=== PATIENT | female | born 1965 | race Caucasian/White ===

== ENCOUNTER 2025-06-10 12:06 | Emergency (ER) | payer OTHER, SELFPAY ==
[2025-06-10 12:07] VITALS: BP 139/78; PULSE 71; RESP 18; TEMP 37; O2SAT 100; BMI 35.4
[2025-06-10 12:36] LABS: Hematocrit 32.6 % (37-47); Hemoglobin 10.2 g/dL (12.0-15.0); Immature Granulocytes Count 0.000 X10^3/uL (0.0-0.0); Mean Corp Hgb Conc 31.3 g/dL (32-36); Mean Corpuscular Volume 92.6 fL (81-99); Mean Platelet Vol. 9.9 fl (6.2-12.0); NRBC Flagged by Analyzer 0 % (0-5); Platelet Count 226 K/mm3 (150-450); RBC Distribution Width CV 16.0 % (11.6-14.6); RBC Distribution Width SD 54.4 fl (35.1-43.9); Red Blood Count 3.52 M/mm3 (4.2-5.4); White Blood Count 4.4 K/mm3 (4.4-11.0)
[2025-06-10 12:48] LABS: Mucous, Urine 0 SEEN /hpf (<or=2+); Red Blood Cells-Urine 0 SEEN /hpf (0-5)
[2025-06-10 12:49] LABS: Color, Urine Yellow (Yellow); Glucose, Dipstick Normal (Normal); Ketone-Dipstick Negative (Negative); Leukocyte Esterase-Dipstick Negative /ul (Negative); Nitrite-Dipstick Negative (Negative); Occult Blood-Urine 10 /ul (Negative); Protein-Dipstick 15 mg/dl (Negative); Specific Gravity, Urine 1.015 (1.002-1.030); Urine Bilirubin Dipstick Negative (Negative)
[2025-06-10 13:00] LABS: AST(SGOT) 20 U/L (<=31); Alanine Aminotransfer ALT/SGPT 15 U/L (<=34); Albumin, Serum 4.1 g/dL (3.4-4.8); Alkaline Phosphatase 94 U/L (35-104); Anion Gap 8 (5-15); BUN 13 mg/dL (4-19); BUN/Creat Ratio 15.8 RATIO (10-20); Calcium,Total 9.0 mg/dL (7.6-11.0); Carbon Dioxide 24.9 mmol/L (21.0-32.0); Chloride 107 mmol/L (98-108); Estimated Creatinine Clearance 76.10 ml/min (50-250); Globulin 2.6 g/dL (2.2-4.2); Glucose 100 mg/dL (70-99); Lipase 20 U/L (13-75); Potassium 4.1 mmol/L (3.3-5.1)
[2025-06-10 13:06] LABS: Squamous Epithelial Cells - UA 0-5 SEEN /hpf (5-10)
--- NOTE | 2025-06-10 14:28 | EDS_ITS ---
HPI HPI - GI History of Present Illness Chief Complaint: GI Bleed Informant: patient Narrative Narrative: Patient presents with 4 days of runny black stool. No blood. No abdominal pain, no nausea, vomiting, lightheadedness, orthostatic symptoms, syncope or near syncope. She states she was concerned because a little over 1 month ago, she was on her way back here from [place] and had to stop in [place] because she was vomiting blood and having melanotic stools. She was admitted to the hospital had endoscopy showing a bleeding ulcer that was cauterized, she discontinued her aspirin for period of time but she has been taking it again for the last several weeks, as she had an ID in the past and has been treated medically, and is on pantoprazole. No other new medications Other than iron supplementation which she started 1 week ago. She denies any bright red blood per rectum. 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 Social History Smoking Status: Never smoker ROS ROS ED Constitutional Constitutional ED: Denies chills or fever(s) Eyes Eyes: Denies change in vision or diplopia ENT ENT ED: Denies rhinorrhea or sore throat Cardiovascular Cardiovascular: Denies chest pain, lightheadedness, palpitations or syncope Respiratory/Chest Respiratory/Chest: Denies cough or dyspnea Gastrointestinal Gastrointestinal: Reports diarrhea and melena; Denies abdominal pain, nausea or vomiting Genitourinary Genitourinary ED: Denies dysuria or hematuria Musculoskeletal Musculoskeletal: Denies back pain or neck pain Integumentary Denies abscess or rash Neurologic Neurologic: Denies headache(s), paresthesias or weakness Psychiatric Psychiatric: Denies anxiety or suicidal thoughts EXAM Physical Exam Const Vital Signs: 06/10/25 12:07 Temperature 98.6 F Temperature Source Oral Pulse Rate 71 Respiratory Rate 18 Blood Pressure 139/78 H Blood Pressure Mean 98 Pulse Ox 100 Oxygen Delivery Method Room Air Positive well nourished and well developed Constitutional Narrative: Well-appearing pleasant no acute distress General Appearance ED: well developed and NAD HEENT Reports moist mucous membranes normocephalic and atraumatic Eyes PERRL and EOMs intact bilaterally Neck full ROM and supple Resp normal respiratory effort and clear to auscultation bilaterally Cardio regular rate, regular rhythm and no murmurs GI non-tender and non-distended GI Narrative: Benign exam. On rectal no tenderness. Very little specimen which is not melanotic or red/bloody. Auscultation: normoactive bowel sounds Palpation: soft Back/Spine no CVA tenderness General Back: other FROM Extremity normal to inspection General Extremety ED: Negative for edema, pulses abnormal or tenderness General Extremity: Negative for edema or pulses abnormal Neuro oriented x3, CN's II-XII intact bilaterally and no sensory deficits noted Sensorium / Orientation: awake and alert Motor Exam: strength 5/5 throughout Skin no rashes or lesions noted and no wounds MDM MDM MDM Narrative Medical decision making narrative: Labs show the patient's hemoglobin is 10.2, I have no old measurements available but she states that when she was admitted to the hospital she was in the 5 range, and as an outpatient within the last couple weeks she was about 8.5. This is reassuring to her. Furthermore her BUN is not significantly elevated to suggest an active acute upper GI bleed. This may be the iron supplementation that is causing the stool discoloration. I checked a Hemoccult; exam is benign and the Hemoccult on the trach specimen available is negative. At this time I think we have enough to discharge the patient safely and follow-up with her doctor. Her discolored stools are more likely related to her new iron supplementation, and she can follow-up with her primary care doctor. History & Record Review Additional record(s) reviewed:: No prior records Lab Data Attestation: I reviewed the patient's lab results. Labs: Laboratory Results - last 24 hr 06/10/25 06/10/25 12:26 12:43 WBC 4.4 RBC 3.52 L Hgb 10.2 L Hct 32.6 L MCV 92.6 MCH 29.0 MCHC 31.3 L RDW Std Deviation 54.4 H RDW Coeff of Kimberly 16.0 H Plt Count 226 MPV 9.9 Immature Gran % (Auto) 0.000 Neut % (Auto) 50.6 Lymph % (Auto) 32.0 [place] % (Auto) 7.6 Eos % (Auto) 8.7 H Baso % (Auto) 1.1 H Absolute Neuts (auto) 2.2 Absolute Lymphs (auto) 1.40 Nucleated RBC % 0 Sodium 141 Potassium 4.1 Chloride 107 Carbon Dioxide 24.9 Anion Gap 8 BUN 13 Creatinine 0.83 Estim Creat Clear Calc 76.10 Est GFR (MDRD) Non-Af 80 BUN/Creatinine Ratio 15.8 Glucose 100 H Calcium 9.0 Total Bilirubin 0.38 AST 20 ALT 15 Alkaline Phosphatase 94 Total Protein 6.7 Albumin 4.1 Globulin 2.6 Albumin/Globulin Ratio 1.6 Lipase 20 Urine Color Yellow Urine Clarity Clear Urine pH 6.0 Ur Specific [place] 1.015 Urine Protein 15 H Urine Glucose (UA) Normal Urine Ketones Negative Urine Occult Blood 10 H Urine Nitrite Negative Urine Bilirubin Negative Urine Urobilinogen Normal Ur Leukocyte Esterase Negative Urine RBC 0 SEEN Urine WBC 0 SEEN Ur Squamous Epith Cells 0-5 SEEN Urine Bacteria 0 SEEN Urine Mucus 0 SEEN Discharge Plan Triage Chief Complaint: GI Bleed ED Provider: Arsenio Hicks Dx/Rx/DC Orders Clinical Impression: Black stools, Anemia, Personal history of peptic ulcer disease Instructions: Iron Supplements Primary Care Provider: Tara Hernandez NP Referrals: Tara Hernandez NP, PHYSICAL THERAPY DIRECTOR-C [Primary Care Provider] - (as previously directed, or sooner if other new issues) Print Language: Turkmen Disposition Disposition: Home, Self Care
[2025-06-10 15:23] VITALS: BP 178/100; PULSE 69; RESP 16; TEMP 36.4; O2SAT 100
== END 2025-06-10 15:23 | disposition home or self-care (01) ==
PROVIDERS: Emergency Provider Emergency Medicine; PCP Nurse Practitioner Primary Care; Visit Provider Emergency Medicine
DX: R19.5 Other fecal abnormalities (principal); I25.2 Old myocardial infarction; D64.9 Anemia, unspecified; Z87.11 Personal history of peptic ulcer disease
CPT/HCPCS: 80053; 81001; 82274; 83690; 85025; 99282; A4216

== ENCOUNTER → 2025-08-14 | Outpatient (CLI) | payer OTHER, SELFPAY ==
[2025-08-14 16:49] LABS: Hematocrit 37.2 % (37-47); Hemoglobin 12.1 g/dL (12.0-15.0); Immature Granulocytes Count 0.010 X10^3/uL (0.0-0.0); Immature Reticulocyte Fraction 11.50 % (3.00-15.90); Mean Corp Hgb Conc 32.5 g/dL (32-36); Mean Corpuscular Volume 87.5 fL (81-99); Mean Platelet Vol. 9.9 fl (6.2-12.0); NRBC Flagged by Analyzer 0 % (0-5); Platelet Count 241 K/mm3 (150-450); RBC Distribution Width CV 15.7 % (11.6-14.6); RBC Distribution Width SD 49.6 fl (35.1-43.9); Red Blood Count 4.25 M/mm3 (4.2-5.4); Reticulocyte Count 0.86 % (0.5-1.5); White Blood Count 5.3 K/mm3 (4.4-11.0)
[2025-08-14 17:17] LABS: Ferritin 18 ng/mL (22-378); Iron Binding Capacity,Total 357 ug/dL (250-450)
[2025-08-14 17:21] LABS: Iron 25 ug/dL (50-170); Iron Binding Capacity,Unsat 332 ug/dL (228-428); LDH 360 U/L (84-246)
[2025-08-19 15:09] LABS: Albumin 3.5 g/dL (2.9-4.4); Gamma Globulin 0.7 g/dL (0.4-1.8); Immunoglobulin A 343 mg/dL (87-352); Immunoglobulin G 695 mg/dL (586-1602); Immunoglobulin M 119 mg/dL (26-217); PROEL- TOTAL PROTEIN 6.6 g/dL (6.0-8.5)
== END | disposition home or self-care (01) ==
LOC: LAB 16:22
PROVIDERS: PCP Nurse Practitioner Primary Care; Referring Provider Internal Medicine Gastroenterology; Visit Provider Internal Medicine Gastroenterology
DX: D64.9 Anemia, unspecified (principal)
CPT/HCPCS: 36415; 82728; 82784; 83010; 83516; 83540; 83550; 83615; 84165; 85025; 85045; 86255; 86334

== ENCOUNTER 2025-09-03 10:30 | Day surgery (SDC) | payer OTHER, SELFPAY ==
--- NOTE | 2025-09-02 14:59 | PAT.ANE_ITS ---
Pre-Assessment Diagnosis/Proposed Procedure Planned Operative Procedure(s): EGD Anesthesia History Anesthesia History - certified nutritionist: Anesthesia History - certified nutritionist Hx Hospitalization Yes: BLEEDING ULCER, BLOOD 09/02/25 11:58 TRANSFUSION 05/2025 Any Problems With Anesthesia No 09/02/25 11:58 Cholinesterase deficiency No 09/02/25 11:58 You/Your Family Experience No 09/02/25 11:58 fever (hyperthermia) with Relationship Recent Exposure to Contagious Disease Does patient have nerve No 09/02/25 11:58 stimulator Patient instructed to have device shut off --Does patient have Pacemaker or ICD? When Was Last Pacemaker Check QUESTION #4 FULL TEXT: You/Your Family Experience fever (hyperthermia) with Anesthesia Last Oral Intake Last Oral intake: Last Oral Intake NPO since Meds taken in AM with sips of water? Meds patient instructed to take am of surgery PONV PONV - certified nutritionist: PONV - certified nutritionist Female Yes 09/02/25 11:58 HX of Motion Sickness No 09/02/25 11:58 HX of N/V After Surgery No 09/02/25 11:58 Non-Smoker Yes 09/02/25 11:58 Duration of Surgery greater No 09/02/25 11:58 than 60 minutes Number of Risk Factors 2 09/02/25 11:58 PONV Score Moderate Risk 09/02/25 11:58 Height & Weight Height & Weight: Anesthesia: Height & Weight Height 5 ft 3 in 06/10/25 12:07 Respiratory Assessment Respiratory Assessment - certified nutritionist: Respiratory Tract Infection Hx - certified nutritionist Hx Respiratory Tract Infection No 09/02/25 11:58 STOP Sleep Apnea STOP Sleep Apnea - certified nutritionist: STOP Sleep Apnea - certified nutritionist Hx Hypertension Yes: CONTROLLED ON MED 09/02/25 11:58 Hx Sleep Apnea No 09/02/25 11:58 CPAP BIPAP Do you snore loudly (louder No 09/02/25 11:58 than talking or can be heard Do you often feel tired/ No 09/02/25 11:58 fatigued/ sleepy during daytime? Has anyone observed you stop No 09/02/25 11:58 breathing during sleep? STOP Results Negative 09/02/25 11:58 QUESTION #5 FULL TEXT : Do you snore loudly (louder than talking or can be heard through closed doors)? 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 Specify any problems Hx of Preganancy in last 3 No 09/02/25 11:58 Months Nurse Filling Out Transfusion VCHRISTIN 09/02/25 11:58 & Questions: Date: 09/02/25 09/02/25 11:58 Time: 11:59 09/02/25 11:58 Patient unable to answer at this time (ie. confused, unrespo /Reproduction History /Reproductive History - certified nutritionist: /Reproductive Hx- certified nutritionist Hx Now No 09/02/25 11:58 Gestational Age (in weeks): EDC: Hx Hx Para Hx Section SAB No 09/02/25 11:58 Does the father of the baby or his family experience fever w Father of the baby Malignant Hypertension history comment PFSH Medical History (Updated 09/02/25 @ 14:13 by Debbie Dykes) History of echocardiogram Wears glasses Post-menopausal Arthritis Kidney stones High cholesterol Amnesia, global, transient History of ulceration Gastric reflux Non-smoker Cardiology follow-up encounter Osteoarthritis of right knee Myocardial infarction HTN (hypertension) HLD (hyperlipidemia) Right hip pain Duodenal ulcer delivery delivered PUD (peptic ulcer disease) Home Medications ?Medication ?Instructions ?Recorded ?Last Taken ?Type acetaminophen 500 mg tablet 500 mg PO Q6H PRN pain Unknown History (Tylenol Extra Strength) aspirin 81 mg tablet 81 mg PO QDAY 06/23/25 Unkno wn History atorvastatin 40 mg tablet (Lipitor) 40 mg PO QDAY 06/09 03/02 Unknown History ezetimibe 10 mg tablet 10 mg PO QDAY 06/23/25 Unkno wn History metoprolol succinate 25 mg 25 mg PO QDAY 06/23/25 Unkn own History tablet,extended release 24 hr Allergy/AdvReac Type Severity Reaction Status Date / Time amoxicillin Allergy Vomiting Verified 09/02/25 11:47 clavulanic acid (From AdvReac Vomiting Verified 09/02/25 11:47 Augmentin) Family History (Updated 06/23/25 @ 15:58 by Jami Leiva) Father Cancer TIA (transient ischemic attack) Mother Heart disease Surgical History (Updated 09/02/25 @ 14:13 by Debbie Dykes) History of cardiac catheterization Previous section 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 Social History (Updated 08/14/25 @ 16:21 by Maribeth Wyatt) Smoking Status: Never smoker alcohol intake: never substance use type: does not use Audit: Pertinent Findings HISTORY of Pertinent Findings History of Pertinent Findings: Cleared by Cardiology Pertinent Findings EKG Perinent findings: 01/2024: NSR, slight inferior repolarization disturbance Echo (EF%) pertinent findings: 04/2022: EF 55-60%, mild aortic regurgitation, RVSP 17, otherwise normal study Heart catheterization pertinent findings: [facility] 04/2022: Normal study, no evidence of disease in vessels Recommendation Anesthesia Recommendation Anesthesia recommendation: OPTIMIZED for anesthesia
[2025-09-03] VITALS (9 sets, daily range): BP systolic 100–129; BP diastolic 60–85; PULSE 65–75; RESP 12–16; TEMP 36.1–36.2; O2SAT 94–100; BMI 35.1
[2025-09-03] MEDS: Lactated Ringers 1,000 ML 15 ML IV (10:49)
--- NOTE | 2025-09-03 10:54 | PRE.ANES_ITS ---
ASA Classification* ASA Classification ASA Classification: 2 (HTN, anemia) Assessment & Plan Anesthesia* Anesthesia Assessment Anesthesia Assessment: Discussed sedation and/or anesthesia options, risks, benefits, and alternatives with patient/parents/legal guardian/POA. Questions invited. The patient/parents/legal guardian/POA seems to understand and agrees to proceed with anesthesia plan. Reviewed the physical assessment, medical history, allergy history and patient home medications list prior to surgery/procedure/anesthetic and documented any changes. Performed airway and anesthesia risk assessments. Anesthesia Type Anesthesia Type: MAC History Source History Obtained from:: Patient and Chart Anesthesia Focused Assessment* Temperature: 97.2 F Pulse Rate: 70 Blood Pressure: 129/67 Respiratory Rate: 12 Pulse Ox: 98 Oxygen Delivery Method: Room Air Airway Assessment Mouth opens: >3 cm Mallampati Score: III Teeth Condition: Missing Neck Range of motion (ROM): Full ROM Labs Anesthesia Preop lab: CBC WBC, (4.4-11.0) 5.3 K/mm3 08/14/25, 16: RBC, (4.2-5.4) 4.25 M/mm3 08/14/25, 16: Hgb, (12.0-15.0) 12.1 g/dL 08/14/25, 16: Hct, (37-47) 37.2 % 08/14/25, 16: Plt Count, (150-450) 241 K/mm3 08/14/25, 16: CHEMISTRY Potassium, (3.3-5.1) 4.1 mmol/L 06/10/25, 12: Sodium, (133-145) 141 mmol/L 06/10/25, 12: BUN, (4-19) 13 mg/dL 06/10/25, 12: Creatinine, (0.70-1.20) 0.83 mg/dL 06/10/25, 12: Glucose, (70-99) 100 mg/dL H 06/10/25, 12: COAG Pre-Assessment Diagnosis/Proposed Procedure Planned Operative Procedure(s): EGD Anesthesia History Anesthesia History - foreign language interpreter: Anesthesia History - foreign language interpreter Hx Hospitalization Yes: BLEEDING ULCER, BLOOD 09/02/25 11:58 TRANSFUSION 05/2025 Any Problems With Anesthesia No 09/02/25 11:58 Cholinesterase deficiency No 09/02/25 11:58 You/Your Family Experience No 09/02/25 11:58 fever (hyperthermia) with Relationship Recent Exposure to Contagious No 09/03/25 10:45 Disease Does patient have nerve No 09/02/25 11:58 stimulator Patient instructed to have device shut off --Does patient have Pacemaker No 09/03/25 10:45 or ICD? When Was Last Pacemaker Check QUESTION #4 FULL TEXT: You/Your Family Experience fever (hyperthermia) with Anesthesia Last Oral Intake Last Oral intake: Last Oral Intake NPO since 20:00 09/03/25 10:45 Meds taken in AM with sips of Yes 09/03/25 10:45 water? Meds patient instructed to see med list 09/03/25 10:45 take am of surgery PONV PONV - foreign language interpreter: PONV - foreign language interpreter Female Yes 09/02/25 11:58 HX of Motion Sickness No 09/02/25 11:58 HX of N/V After Surgery No 09/02/25 11:58 Non-Smoker Yes 09/02/25 11:58 Duration of Surgery greater No 09/02/25 11:58 than 60 minutes Number of Risk Factors 2 09/02/25 11:58 PONV Score Moderate Risk 09/02/25 11:58 Height & Weight Height & Weight: Anesthesia: Height & Weight Height 5 ft 3 in 09/03/25 10:45 Weight: 90 kg 09/03/25 10:45 Body Mass Index (BMI) 35.1 09/03/25 10:45 Respiratory Assessment Respiratory Assessment - foreign language interpreter: Respiratory Tract Infection Hx - foreign language interpreter Hx Respiratory Tract Infection No 09/02/25 11:58 STOP Sleep Apnea STOP Sleep Apnea - foreign language interpreter: STOP Sleep Apnea - foreign language interpreter Hx Hypertension Yes: CONTROLLED ON MED 09/02/25 11:58 Hx Sleep Apnea No 09/02/25 11:58 CPAP BIPAP Do you snore loudly (louder No 09/02/25 11:58 than talking or can be heard Do you often feel tired/ No 09/02/25 11:58 fatigued/ sleepy during daytime? Has anyone observed you stop No 09/02/25 11:58 breathing during sleep? STOP Results Negative 09/02/25 11:58 QUESTION #5 FULL TEXT : Do you snore loudly (louder than talking or can be heard through closed doors)? 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 Specify any problems Hx of Preganancy in last 3 No 09/02/25 11:58 Months Nurse Filling Out Transfusion VCHRISTIN 09/02/25 11:58 & Questions: Date: 09/02/25 09/02/25 11:58 Time: 11:59 09/02/25 11:58 Patient unable to answer at this time (ie. confused, unrespo /Reproduction History /Reproductive History - foreign language interpreter: /Reproductive Hx- foreign language interpreter Hx Now No 09/02/25 11:58 Gestational Age (in weeks): EDC: Hx Hx Para Hx Section SAB No 09/02/25 11:58 Does the father of the baby or his family experience fever w Father of the baby Malignant Hypertension history comment Active Medications Active Medications: Current Medications Generic Name Dose Route Start Last Admin Trade Name Freq PRN Reason Stop Dose Admin Lactated Ringer's 1,000 mls @ 15 mls/hr 09/03/25 10:45 09/03/25 10:49 IV 15 mls/hr .Q48H ENEDINA Administration PFSH Medical History (Updated 09/02/25 @ 14:13 by Debbie Dykes) History of echocardiogram Wears glasses Post-menopausal Arthritis Kidney stones High cholesterol Amnesia, global, transient History of ulceration Gastric reflux Non-smoker Cardiology follow-up encounter Osteoarthritis of right knee Myocardial infarction HTN (hypertension) HLD (hyperlipidemia) Right hip pain Duodenal ulcer delivery delivered PUD (peptic ulcer disease) Home Medications ?Medication ?Instructions ?Recorded ?Last Taken ?Type acetaminophen 500 mg tablet 500 mg PO Q6H PRN pain Unknown History (Tylenol Extra Strength) aspirin 81 mg tablet 81 mg PO QDAY 06/23/2509/02 History atorvastatin 40 mg tablet (Lipitor) 40 mg PO QDAY 06/0909/02/25 History ezetimibe 10 mg tablet 10 mg PO QDAY 06/23/2509/02 History metoprolol succinate 25 mg 25 mg PO QDAY 06/23/2508/10 04:30 History tablet,extended release 24 hr Allergy/AdvReac Type Severity Reaction Status Date / Time amoxicillin Allergy Vomiting Verified 09/03/25 10:44 clavulanic acid (From AdvReac Vomiting Verified 09/03/25 10:44 Augmentin) Family History (Updated 06/23/25 @ 15:58 by Jami Leiva) Father Cancer TIA (transient ischemic attack) Mother Heart disease Surgical History (Updated 09/02/25 @ 14:13 by Debbie Dykes) History of cardiac catheterization Previous section 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 Physical Exam Const alert, oriented x3 and average body habitus Resp normal respiratory effort, normal air movement and clear to auscultation bilaterally Cardio regular rate, regular rhythm and no murmurs; Negative for diaphoretic
--- NOTE | 2025-09-03 11:30 | EGD_PTH ---
PATIENT: TIMOTHY FITCH LOC: EN U#:[id number] AGE/SX: 60/F ROOM: RE09/03/[address]: Dr. Homar Lemus DO : 1965 BED: DIS: 09/03/2025 SPEC #: [id number] RECD: 09/03/25 14:01 STATUS: TANJA REEly #: [id number] IFEOMA: 09/03/25 11:[address]: Homar Lemus DEPT: SURGICAL PATHOLOGY RECD BY: Germán Herron ENTERED: 09/03/25 14:51 SP TYPE: EGD BIOPSY SASKIA DR: Tara Hernandez, MANAGER STRATEGY & ACCOUNT-C Tissues: A - Gastric mucous membrane B - Duodenum, NOS Procedures: Surgery Specimen Level IV HEADER OPERATION: EGD with biopsy PRE-OP DIAGNOSIS: Anemia, peptic ulcer disease TISSUE SUBMITTED: A- Gastric ulcer biopsy, B- Duodenal ulcer biopsy MICROSCOPIC DIAGNOSIS A. Stomach, ulcer, biopsy: - Features of reactive gastropathy. - Negative for Helicobacter-like organisms (H&E). B. Small intestine, duodenum, biopsy: - Ekta gland hyperplasia with acute inflammation and gastric mucin cell metaplasia, suggestive of peptic injury. - Negative for increased intraepithelial lymphocytes. MICROSCOPIC DESCRIPTION Slides are reviewed. GROSS DESCRIPTION A. Received in fixative is one container labeled with the patient's name and designated Gastric ulcer biopsy. The specimen consists of one irregular fragment of lozada tissue that measures 0.6 cm. The specimen is totally submitted in one cassette. B. Received in fixative is one container labeled with the patient's name and designated Duodenal ulcer biopsy. The specimen consists of one irregular fragment of lozada tissue that measures 0.6 cm. The specimen is totally submitted in one cassette. NM 09/03/2025 CPT:65054a2
--- NOTE | 2025-09-03 11:42 | HP.PCM_ITS ---
HPI - General General Date of Admission: 09/03/25 Date of Service: 09/03/25 Chief Complaint: Anemia HPI Narrative TIMOTHY FITCH, is a 60 F who presents for evaluation of anemia [facility] ED .12.03 GI bleed - 4 days of loose black stool. 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 She was admitted to the hospital in [place] and had EGD and colonoscopy that showed a bleeding duodenal ulcer that was cauterized and was told to follow up for repeat scope in 4 months. *BGI established 08.14.25 pt reports some difficulty swallowing and reports similar symptoms to how she was feeling in May prior to hospitalization for ulcer. Denies other GI symptoms of concern at this time. [facility]LY [facility] Medical History History of echocardiogram Wears glasses Post-menopausal Arthritis Kidney stones High cholesterol Amnesia, global, transient History of ulceration Gastric reflux Non-smoker Cardiology follow-up encounter Osteoarthritis of right knee Myocardial infarction HTN (hypertension) HLD (hyperlipidemia) Right hip pain Duodenal ulcer delivery delivered PUD (peptic ulcer disease) Home Medications ?Medication ?Instructions ?Recorded ?Last Taken ?Type acetaminophen 500 mg tablet 500 mg PO Q6H PRN pain Unknown History (Tylenol Extra Strength) aspirin 81 mg tablet 81 mg PO QDAY 06/23/2509/02 History atorvastatin 40 mg tablet (Lipitor) 40 mg PO QDAY 06/0909/02/25 History ezetimibe 10 mg tablet 10 mg PO QDAY 06/23/2509/02 History metoprolol succinate 25 mg 25 mg PO QDAY 06/23/2508/10 04:30 History tablet,extended release 24 hr Allergy/AdvReac Type Severity Reaction Status Date / Time amoxicillin Allergy Vomiting Verified 09/03/25 10:44 clavulanic acid (From AdvReac Vomiting Verified 09/03/25 10:44 Augmentin) Family History Father Cancer TIA (transient ischemic attack) Mother Heart disease Surgical History History of cardiac catheterization Previous section 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 Social History Smoking Status: Never smoker alcohol intake: never substance use type: does not use ROS Constitutional Constitutional: Denies fatigue, fever(s), poor appetite, weight gain or weight loss Gastrointestinal Gastrointestinal: Denies belching, bloating, change in bowel habits, change in stool character, chewing difficulty, coffee ground emesis, constipation, cramping, diarrhea, dyspepsia, dysphagia, early satiety, excessive flatus, fecal incontinence, heartburn, hematemesis, hematochezia, hemorrhoids, loose stools, melena, nausea, odynophagia, rectal bleeding, tenesmus, vomiting or weight changes Vital Signs Vital Signs Vital Signs: 09/03/25 10:45 09/03/25 10:45 09/03/25 10:49 Temperature 97.2 F L Temperature Source Temporal Pulse Rate 70 Respiratory Rate 12 Respiratory Pattern Normal Blood Pressure 129/67 H Blood Pressure Mean 87 Blood Pressure Source Monitor Blood Pressure Position Semi-Fowlers Blood Pressure Location Left Arm Baseline BP 129/67 Pulse Ox 98 Oxygen Delivery Method Room Air 09/03/25 10:56 Temperature 97.2 F L Temperature Source Pulse Rate 70 Respiratory Rate 12 Respiratory Pattern Blood Pressure 129/67 H Blood Pressure Mean Blood Pressure Source Blood Pressure Position Blood Pressure Location Baseline BP Pulse Ox 98 Oxygen Delivery Method Room Air Weight Weight: 198 lb 6.656 oz Body Mass Index (BMI) 35.1 Physical Exam Const alert, oriented x3, no apparent distress and healthy appearing General Appearance: cooperative GI normal to inspection, nondistended, normoactive bowel sounds, soft to palpation, non-tender and non-distended Percussion: normal to percussion Rectal Exam: deferred Assessment & Plan Assessment/Plan (1) Anemia: (2) PUD (peptic ulcer disease): PLAN: Assessment and Plan Assessment and Plan (1) Anemia: Status: Inactive (2) PUD (peptic ulcer disease): Status: Acute (3) Anemia: Status: Acute Plan: Assessment * Gastrointestinal Bleeding (GIB), likely upper:?Patient presents with recurrent melena after a recent, successfully treated bleeding duodenal ulcer. This requires careful management and investigation into the cause of recurrence and current bleeding status. * Duodenal ulcer:?Etiology likely related to medications (aspirin use is a high risk factor). * Coronary Artery Disease (CAD) / s/p MD:?This necessitates continued antiplatelet therapy (aspirin), which is a confounding factor in GIB management. * Anemia (likely secondary to GIB):?Status unknown pending labs. I will repeat her iron studies. Her last hemoglobin was 10.2. She is still on iron once a day. Plan * Gastrointestinal: * Review all available records from the [place] hospitalization and the [facility] ED visit (06/10/25), specifically labs (Hgb/Hct) and exact procedure reports. * Assess current Hgb/Hct level today to determine ongoing bleeding and stability. * Medication Management:?Discuss the high risk of continued aspirin use given recurrent GIB. Coordinate care with the Cardiology team to determine if aspirin can be safely discontinued or modified (e.g., switched to clopidogrel with PPI, if appropriate per cardiology guidelines and timing s/p MD). * Ensure patient is started on a high-dose Proton Pump Inhibitor (PPI) (e.g., Omeprazole 40mg BID) for ulcer healing and prevention of rebleeding. * Schedule repeat EGD as previously recommended from the [place] admission (to occur within the next 3 months, or sooner if indicated by current symptoms/labs). * Educate patient on symptoms of GIB recurrence (black/tarry stools, vomiting blood, dizziness, fatigue) and when to seek immediate medical attention. * Cardiovascular: * Continue current statin and beta-leonela. Orders: Orders Ferritin Today D64.9 - Anemia, unspecified JODIE + Protein Elect, Serum Today D64.9 - Anemia, unspecified Celiac Disease Profile Today D64.9 - Anemia, unspecified LDH Today D64.9 - Anemia, unspecified Haptoglobin Today D64.9 - Anemia, unspecified Retic Panel Count Today D64.9 - Anemia, unspecified Iron+Iron Binding Capacity Today D64.9 - Anemia, unspecified CBC W/Diff, Automated Today D64.9 - Anemia, unspecified ]
--- NOTE | 2025-09-03 12:11 | PCM.POST.ANE ---
Anesthesia: Postop Eval I Current Vital Signs Temperature: 97.2 F Pulse Rate: 75 Blood Pressure: 119/60 Respiratory Rate: 16 Pulse Ox: 95 Oxygen Delivery Method: Room Air Assessment Airway patent: Yes Spontaneous unlabored respirations: Yes Mental status: Awake and Calm nausea: No Vomiting: No Anesthesia Complication: No Fluid Hydration Crystalloid volume administer (ml): 400 Total IV fluid infused: 400 Progress Note Anesthesia document: Postop Eval 1 completed: Yes
--- NOTE | 2025-09-03 12:15 | OP.PROVAT_ITS ---
09/03/2025 Tara Hernandez Re : Upper GI endoscopy procedure for Gladis Augspurger Dear David This procedure was performed on Wednesday, September 03, 2025. My impressions and recommendations are as follows: Impressions : - LA Grade A reflux esophagitis with no bleeding. - Non-bleeding gastric ulcer with no stigmata of bleeding. Biopsied. - Non-bleeding duodenal ulcers with no stigmata of bleeding. Biopsied. Recommendations : - Discharge patient to home. - Resume previous diet. - Continue present medications. - Use Protonix (pantoprazole) 40 mg PO BID. My findings are described in the full procedure note, which is enclosed. If I can be of further assistance, please feel free to contact me at . Sincerely, Homar Lemus, 09/03/2025 12:15:14 PM This report has been signed electronically.
--- NOTE | 2025-09-03 12:15 | OP.EGD_ITS ---
Patient Name: Gladis Borrero Procedure Date: 09/03/2025 10:40 AM Date of : 1965 Age: 60 Procedure: Upper GI endoscopy Indications: Epigastric abdominal pain Providers: Homar Lemus DO Referring MD: Tara Hernadnez Medicines: Monitored Anesthesia Care Patient Profile: This is a 60 year old female. Refer to note in patient chart for documentation of history and physical. Patient has symptoms of chronic epigastric abdominal pain. Complications: No immediate complications. Procedure: Pre-Anesthesia Assessment: - Prior to the procedure, a History and Physical was performed, and patient medications and allergies were reviewed. The patient is competent. The risks and benefits of the procedure and the sedation options and risks were discussed with the patient. All questions were answered and informed consent was obtained. Patient identification and proposed procedure were verified by the physician in the pre-procedure area. Mental Status Examination: alert and oriented. Airway Examination: normal oropharyngeal airway and neck mobility. Respiratory Examination: clear to auscultation. CV Examination: normal. Prophylactic Antibiotics: The patient does not require prophylactic antibiotics. Prior Anticoagulants: The patient has taken no anticoagulant or antiplatelet agents except for NSAID medication. ASA Grade Assessment: II - A patient with mild systemic disease. After reviewing the risks and benefits, the patient was deemed in satisfactory condition to undergo the procedure. The anesthesia plan was to use monitored anesthesia care (MAC). Immediately prior to administration of medications, the patient was re-assessed for adequacy to receive sedatives. The heart rate, respiratory rate, oxygen saturations, blood pressure, adequacy of pulmonary ventilation, and response to care were monitored throughout the procedure. The physical status of the patient was re-assessed after the procedure. After obtaining informed consent, the endoscope was passed under direct vision. Throughout the procedure, the patient's blood pressure, pulse, and oxygen saturations were monitored continuously. The gastroscope was introduced through the mouth, and advanced to the second part of duodenum. The upper GI endoscopy was accomplished without difficulty. The patient tolerated the procedure well. Scope In: 11:56:34 AM Scope Out: 11:59:32 AM Total Procedure Duration Time 0 hours 2 minutes 58 seconds Findings: LA Grade A (one or more mucosal breaks less than 5 mm, not extending between tops of 2 mucosal folds) esophagitis with no bleeding was found 35 to 38 cm from the incisors. One non-bleeding cratered gastric ulcer with no stigmata of bleeding was found in the gastric antrum. The lesion was 6 mm in largest dimension. Biopsies were taken with a cold forceps for histology. Biopsies were taken with a cold forceps for Helicobacter pylori testing. Many non-bleeding linear duodenal ulcers with no stigmata of bleeding were found in the duodenal bulb and in the first portion of the duodenum. The largest lesion was 7 mm in largest dimension. Biopsies were taken with a cold forceps for histology. Verification of patient identification for the specimen was done. Estimated blood loss was minimal. Impression: - LA Grade A reflux esophagitis with no bleeding. - Non-bleeding gastric ulcer with no stigmata of bleeding. Biopsied. - Non-bleeding duodenal ulcers with no stigmata of bleeding. Biopsied. Recommendation: - Discharge patient to home. - Resume previous diet. - Continue present medications. - Use Protonix (pantoprazole) 40 mg PO BID. Procedure Code(s): --- Professional --- 13741, Esophagogastroduodenoscopy, flexible, transoral; with biopsy, single or multiple CPT copyright 2021 [employer]. All rights reserved. The codes documented in this report are preliminary and upon loom inspector review may be revised to meet current compliance requirements. Homar Lemus DO 09/03/2025 12:15:14 PM This report has been signed electronically. Number of Addenda: 0 Note Initiated On: 09/03/2025 10:40 AM
--- NOTE | 2025-09-03 16:04 | POSTOPAN2_ITS ---
Anesthesia Postop Eval I Sum Postop Eval Completion status Anesthesia document: Postop Eval 1 completed: Yes Anesthesia Postop Eval I Summary Anesthesia Postop Eval I Summary: Anesthesia Postop Eval I: Assessment Summary Airway patent Yes 09/03/25 12:11 HOME PERFORMANCE [email or web address].[email or web address] Spontaneous unlabored Yes 09/03/25 12:11 HOME PERFORMANCE CONSULTANT.GDOTT respirations Mental status Awake,Calm 09/03/25 12:11 HOME PERFORMANCE CONSULTANT.GDOTT nausea No 09/03/25 12:11 HOME PERFORMANCE CONSULTANT.GDOTT Vomiting No 09/03/25 12:11 HOME PERFORMANCE CONSULTANT.GDOTT Anesthesia Postop Eval I: Fluid Summary Crystalloid volume administer 400 09/03/25 12:11 HOME PERFORMANCE CONSULTANT.GDOTT (ml) Colloids volume administered ( ml) Blood Product volume administered (ml) Total IV fluid infused 400 09/03/25 12:11 HOME PERFORMANCE CONSULTANT.GDOTT Anesthesia Postop Eval I: Summary Notes Anesthesia Complication No 09/03/25 12:11 HOME PERFORMANCE CONSULTANT.GDOTT Anesthesia Complication Comment: Post-operative progress note Anesthesia: Postop Eval II Evaluation Mental status: Awake Pain Level: 0 nausea: No Vomiting: No Complications Anesthesia Complication: No
--- NOTE | 2025-09-03 16:04 | PCM.POSTANE2 ---
Anesthesia Postop Eval I Sum Postop Eval Completion status Anesthesia document: Postop Eval 1 completed: Yes Anesthesia Postop Eval I Summary Anesthesia Postop Eval I Summary: Anesthesia Postop Eval I: Assessment Summary Airway patent Yes 09/03/25 12:11 [email or web address] Spontaneous unlabored Yes 09/03/25 12:11 VISUAL [email or web address].[email or web address] respirations Mental status Awake,Calm 09/03/25 12:11 VISUAL [email or web address] nausea No 09/03/25 12:11 VISUAL LEAD.GDOTT Vomiting No 09/03/25 12:11 VISUAL LEAD.[email or web address] Anesthesia Postop Eval I: Fluid Summary Crystalloid volume administer 400 09/03/25 12:11 VISUAL LEAD.GDOTT (ml) Colloids volume administered ( ml) Blood Product volume administered (ml) Total IV fluid infused 400 09/03/25 12:11 VISUAL [email or web address].[email or web address] Anesthesia Postop Eval I: Summary Notes Anesthesia Complication No 09/03/25 12:11 VISUAL LEAD.[email or web address] Anesthesia Complication Comment: Post-operative progress note Anesthesia: Postop Eval II Evaluation Mental status: Awake Pain Level: 0 nausea: No Vomiting: No Complications Anesthesia Complication: No
== END 2025-09-03 12:39 | disposition home or self-care (01) ==
LOC: EN 10:35 → AC 10:37
PROVIDERS: PCP Nurse Practitioner Primary Care; Referring Provider Nurse Practitioner Primary Care; Visit Provider Internal Medicine Gastroenterology
PROC: 0DJ08ZZ Inspection of Upper Intestinal Tract, Via Natural or Artificial Opening Endoscopic (ICD-10-PCS; CPT 43235; principal; 2025-09-03 11:25)
DX: K31.A0 Gastric intestinal metaplasia, unspecified (principal); I25.10 Atherosclerotic heart disease of native coronary artery without angina pectoris; I10 Essential (primary) hypertension; K25.9 Gastric ulcer, unspecified as acute or chronic, without hemorrhage or perforation; D64.9 Anemia, unspecified; E78.00 Pure hypercholesterolemia, unspecified; K21.00 Gastro-esophageal reflux disease with esophagitis, without bleeding; Z79.899 Other long term (current) drug therapy; Z79.82 Long term (current) use of aspirin; K26.9 Duodenal ulcer, unspecified as acute or chronic, without hemorrhage or perforation; K52.9 Noninfective gastroenteritis and colitis, unspecified
CPT/HCPCS: 43239; 88305; J2405